=== PATIENT | female | born 1965 | race Caucasian/White ===

== ENCOUNTER 2024-05-21 13:56 | Emergency (ER) | payer OTHER ==
[~2024-05-21] VITALS: Ht 162.6 cm; Wt 111.1 kg
[2024-05-21 14:05] VITALS: BP_SYST 121; PULSE 104; RESP 18; TEMP 98.5; O2SAT 96
== END 2024-05-21 15:20 | disposition left against medical advice (07) ==
LOC: SED 13:56
DX: M79.604 Pain in right leg (principal); R22.41 Localized swelling, mass and lump, right lower limb; Z98.890 Other specified postprocedural states
CPT/HCPCS: 99281